=== PATIENT | female | born 1970 | race Caucasian/White ===

== ENCOUNTER 2019-04-27 17:03 | Inpatient (IN) | payer BC, OTHER ==
[2019-04-27 18:10] LABS: #Eosinphils 0.2 thou/uL (0.0-0.7); #Lymphocytes 2.9 thou/uL (1.20-3.40); #Monocytes 0.6 thou/uL (0.11-0.59); #Neutrophils 7.3 thou/uL (1.40-6.50); %Basophils 0.5 % (0.0-1.0); %Eosinophils 1.8 % (0.0-10.0); %Lymphocytes 26.5 % (21.0-51.0); %Monocytes 5.2 % (0.0-10.0); Mean Corpuscular HGB CONC 33.3 g/dL (32.0-36.0); Mean Corpuscular Hemoglobin 30.7 pg (27.0-31.0); Mean Corpuscular Volume 92.2 fL (78.0-98.0); Mean Platelet Volume 7.9 fL (7.4-10.4); Platelet Count 261 thou/uL (130-400); RBC Distribution Width 11.4 % (11.5-14.5); Red Blood Cell (RBC) Count 4.23 mill/uL (4.20-5.40); White Blood Cell (WBC) Count 11.1 thou/uL (4.8-10.8)
[2019-04-27 18:11] LABS: #Basophils 0.1 thou/uL (0.0-0.2)
[2019-04-27 18:42] LABS: ALT (SGPT) 19 U/L (8-55); AST (SGOT) 22 U/L (5-34); Alkaline Phosphatase 71 U/L (40-110); Anion Gap 10 mmol/L (10-20); BUN (Urea Nitrogen) 10 mg/dL (7.0-18.7); Bilirubin, Total 0.4 mg/dL (0.2-1.2); Calc. Creatinine Clearance 0 mL/min (70-130); Calcium 8.6 mg/dL (7.8-10.44); Carbon Dioxide 27 mmol/L (22-29); Chloride 104 mmol/L (98-107); Estimated GFR-MDRD 82; Globulin 2.7 g/dL (2.4-3.5); Glucose 96 mg/dL (70-105); Potassium 3.8 mmol/L (3.5-5.1); Protein, Total 6.7 g/dL (6.0-8.3); Sodium 137 mmol/L (136-145)
[2019-04-27] MEDS ORDERED: Morphine 4 MG/ML VIAL ONE (19:21)
[2019-04-27] MEDS ORDERED: Ondansetron PF 4 MG/2 ML Vial ONE (19:21)
--- NOTE | 2019-04-27 19:24 | RAD ---
Exam: Right knee 2 views: HISTORY: Injury from a slip and fall with pain and swelling FINDINGS: Very markedly comminuted markedly displaced fractures of the patella with up to 4.5 cm of displacemen t between the more superior and the more caudal fragments of the patella. The femur, tibia, and fibula appear intact. IMPRESSION: Very markedly comminuted markedly displaced fractures of the patella with severe separation of fragme nts.
[2019-04-27] MEDS ORDERED: Dextrose 5% in Water 1,000 ML IV PRN (20:58)
[2019-04-27] MEDS ORDERED: Ondansetron ODT 4 MG TAB PO PRN (20:58)
[2019-04-27] MEDS ORDERED: hydrALAZINE 20 MG/ML VIAL SLOW IVP PRN (20:58)
[2019-04-27] MEDS ORDERED: Ondansetron PF 4 MG/2 ML Vial IVP PRN (20:58)
[2019-04-27] MEDS ORDERED: Dextrose 50% Abboject 50 ML SYRINGE SLOW IVP PRN (20:58)
[2019-04-27] MEDS ORDERED: traMADol HCl 50 MG TAB PO PRN (21:04)
[2019-04-27] MEDS ORDERED: Cyclobenzaprine 10 MG TAB PO PRN (21:05)
[2019-04-27 21:43] LABS: Magnesium 1.8 mg/dL (1.6-2.6); Phosphorus 2.9 mg/dL (2.3-4.7)
--- NOTE | 2019-04-27 21:51 | RAD ---
Radiograph right hip 2 views: DATE: 04/27/2019 HISTORY: 48-year-old female with acute right hip pain due to fall FINDINGS: No fracture or dislocation. No DJD. IMPRESSION: Normal.
[2019-04-28] MEDS: Sodium Chloride 0.9% 1,000 ML IV SCH ×2 (00:10→10:06)
[2019-04-28] MEDS: Acetaminophen 1,000 MG in Premix Bag 1 BAG IVPB SCH ×4 (00:11→17:43)
[2019-04-28] MEDS: Famotidine 20 MG TAB PO SCH ×3 (00:11→20:57)
[2019-04-28] MEDS: Ibuprofen 800 MG TAB PO SCH ×4 (01:05→21:00)
--- NOTE | 2019-04-28 04:19 | HP ---
REQUESTING PHYSICIAN: Dr. Wright. CONSULTS: Orthopedic Surgery, Dr. Craig. 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 The patient states that the floor was slippery. The patient denies hitting her head or losing consciousness. The patient reported immediate right knee pain. The patient denies any other injuries. The patient denies feeling dizzy, short of breath, or having any chest pain prior to falling. The patient denies any recent illnesses , cough, cold, or fever. The patient was evaluated in the emergency room and was found to have a comminuted displaced patellar fracture. Trauma Service was asked to admit the patient. PAST MEDICAL HISTORY: Denies any past medical history. PAST SURGICAL HISTORY: Denies having any surgeries. ALLERGIES: PENICILLIN AND SULFA. MEDICATIONS: Progesterone and Estrogen. SOCIAL HISTORY: Denies tobacco use, reports occasional alcohol use, denies any illicit drug use, the patient is single and lives alone in her home. 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 PHYSICAL EXAMINATION: VITAL SIGNS: Blood pressure 145/79, pulse 82, respirations 16, SpO2 of 99% on room air. GENERAL: Middle-aged female, well appearing, no acute distress. HEENT: Atraumatic and normocephalic. NECK: No cervical spine tenderness, normal range of motion. Trachea midline. RESPIRATORY: Equal chest rise and fall, bilateral breath sounds clear, no wheezing, rales, or rhonchi. CARDIAC: Regular rate, regular rhythm, no murmurs. ABDOMEN: Soft, nontender, nondistended. EXTREMITIES: Mild right hip pain with palpation, right knee with ecchymosis and significant swelling, positive distal pulses, neurovascularly intact. Other extremities unremarkable. NEUROLOGIC: No focal deficits. GCS 15. DIAGNOSTICS: A 12-lead EKG, normal sinus rhythm. Right knee x-ray, impression, comminuted, markedly displaced fracture of the patella with severe separation of fragments. Right hip x-ray, no fracture or dislocation. LABORATORY DATA: WBC 11.1, RBC 4.23, hemoglobin 13.0, hematocrit 39.0, platelets 261. Sodium 137, potassium 3.8, chloride 104, carbon dioxide 27, BUN 10, creatinine 0.76, estimated GFR 82, glucose 96, calcium 8.6, phosphorus 2.9, magnesium 1.8, AST 22, ALT 19, alkaline phosphatase 71. ASSESSMENT: 1. Status post ground level fall. 2. Right comminuted displaced patellar fracture. 3. Acute traumatic pain. PLAN: Admit to surgical floor. N.p.o. after midnight with plans for Orthopedic Surgery to take to the OR for repair of her right patellar fracture. We will place the patient on pain regimen. Mechanical DVT prophylaxis. We will place a PT/OT consult to evaluate and treat postop. Most likely, the patient should be able to go home postop if she is able to ambulate safely and pain is well controlled. The patient should not need inpatient rehab. The plan was discussed with the patient who agrees. The plan will be discussed with the attending after this dictation. Job ID: [id number] MTDD
[2019-04-28 04:40] LABS: #Eosinphils 0.2 thou/uL (0.0-0.7); #Lymphocytes 3.9 thou/uL (1.20-3.40); #Monocytes 0.6 thou/uL (0.11-0.59); #Neutrophils 3.4 thou/uL (1.40-6.50); %Basophils 0.4 % (0.0-1.0); %Eosinophils 2.1 % (0.0-10.0); %Lymphocytes 47.5 % (21.0-51.0); %Monocytes 7.6 % (0.0-10.0); %Neutrophils 42.4 % (42.0-75.0); Hemoglobin 11.6 g/dL (12.0-16.0); Mean Corpuscular HGB CONC 34.7 g/dL (32.0-36.0); Mean Corpuscular Volume 92.2 fL (78.0-98.0); Platelet Count 225 thou/uL (130-400); RBC Distribution Width 11.4 % (11.5-14.5); Red Blood Cell (RBC) Count 3.61 mill/uL (4.20-5.40); White Blood Cell (WBC) Count 8.1 thou/uL (4.8-10.8)
[2019-04-28 05:00] LABS: Anion Gap 14 mmol/L (10-20); BUN (Urea Nitrogen) 8 mg/dL (7.0-18.7); Calc. Creatinine Clearance 0 mL/min (70-130); Carbon Dioxide 20 mmol/L (22-29); Chloride 108 mmol/L (98-107); Estimated GFR-MDRD 82; Glucose 84 mg/dL (70-105); Potassium 3.8 mmol/L (3.5-5.1); Sodium 138 mmol/L (136-145)
[2019-04-28] MEDS ORDERED: CEFAZOLIN 2 GM in Premix Bag 1 BAG IVPB SCH (06:15)
--- NOTE | 2019-04-28 06:33 | CON ---
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 She reports immediate pain. She denies any loss of consciousness. Upon arrival at [place], her sole complaint was that of right anterior knee pain. X-rays were obtained that showed a displaced and comminuted patellar fracture. As such, the patient admitted to the Trauma Service and Orthopedic consultation requested. PAST MEDICAL HISTORY: Healthy. PAST SURGICAL HISTORY: Negative. ALLERGIES: PENICILLIN AND SULFA, BOTH OF WHICH CAUSE HIVES. MEDICATIONS: Progesterone. FAMILY HISTORY: Noncontributory. SOCIAL HISTORY: Denies tobacco use. Reports rare alcohol consumption. Denies any drug use. REVIEW OF SYSTEMS: No recent fevers, chills, or sweats. Denies chest pain or shortness of breath. Denies numbness or tingling in the lower extremity. PHYSICAL EXAMINATION: VITAL SIGNS: She is found to have a temperature of 98.4, heart rate of 82, respiratory rate of 16, and blood pressure 145/78. GENERAL: She is found to be awake, alert, and oriented, in mild pain secondary to this knee. Friend is at bedside. HEENT: Atraumatic and normocephalic. HEART: Shows a regular rate and rhythm without murmur. LUNGS: Clear to auscultation bilaterally with good breath sounds. Chest wall is nontender. ABDOMEN: Soft and nontender. PELVIS: Stable to compression. EXTREMITIES: Remarkable for bilateral upper extremities are atraumatic. A left lower extremity also atraumatic. Right lower extremity remarkable for an atraumatic knee, ankle, and foot. She is wiggling her toes normally. Lower leg compartments are soft. There is no pain with passive stretch. The knee is remarkable for a positive hemarthrosis with a palpable gap at the patella with wide diastasis. LABORATORY DATA: White count of 11, hematocrit of 39 and 261,000 platelets. IMAGING STUDIES: X-rays, four view x-ray right knee remarkable for a patellar fracture with a large transverse fracture with severe diastasis in the superior pole showing fragmentation as well. ASSESSMENT: A 48-year-old lady status post ground level fall sustaining comminuted right patellar fracture. PLAN: At this time, the patient will be admitted to the surgical floor with plans to keep her n.p.o. after midnight and proceed to the operating room tomorrow for an open reduction and internal fixation. This evening, I discussed with the patient risks and benefits of the procedure. Risks include, but are not limited to bleeding, infection, nerve injury, DVT, PE, knee stiffness, knee pain, nonunion, malunion, loss of limb or life. The patient appears to understand and does wish to proceed. Informed consent will be obtained prior to surgery. Job ID: [id number]
[2019-04-28] MEDS: Senokot S 8.6-50 MG TAB PO SCH ×2 (07:24→20:58)
[2019-04-28] MEDS: Polyethylene Glycol 3350 17 GM Packet PO SCH (07:24)
[2019-04-28] MEDS: Morphine 4 MG/ML VIAL SLOW IVP PRN ×2 (10:06→15:49)
[2019-04-28] MEDS ORDERED: Bupivacaine HCl 0.5%/Epinephrine 1:200,000/PF 30 ml Vial ONE (10:14)
[2019-04-28] MEDS ORDERED: Ketorolac Tromethamine 30 MG/ML VIAL ONE (10:14)
[2019-04-28] MEDS ORDERED: Lidocaine 1% PF 5 ML VIAL ONE (10:14)
[2019-04-28] MEDS ORDERED: PROPOFOL 200 MG/20 ML VIAL ONE (10:14)
[2019-04-28] MEDS ORDERED: ePHEDrine/0.9% NaCl/PF SYRINGE 50 mg/10 ml ONE (10:14)
[2019-04-28] MEDS ORDERED: Ondansetron PF 4 MG/2 ML Vial ONE (10:14)
--- NOTE | 2019-04-28 10:36 | PRG ---
DATE OF SERVICE: 04/28/2019 SUBJECTIVE: Ms. Marquez is a 48-year-old woman fell down from ground level position yesterday sustaining a right comminuted displaced patellar fracture. This morning, she is awake and alert. Darnell Coma Scale is 15. She reports adequate pain control. OBJECTIVE: VITAL SIGNS: Include blood pressure 105/68, pulse 62, respiratory rate is 14, temperature is 98.1 degrees Fahrenheit, oxygen saturation 98% on room air. HEART: Reveals regular rate and rhythm. LUNGS: Clear to auscultation bilaterally. ABDOMEN: Soft, nontender, and nondistended. EXTREMITIES: Reveal 2+ radial and pedal pulses bilaterally. LABORATORY FINDINGS: Include a CBC with 8100 white blood cells, hemoglobin and hematocrit 11.6 and 33.3 respectively, platelet count is 225,000. Metabolic profile; sodium 138, potassium 3.8, chloride is 108, bicarb is 20, BUN 8, creatinine 0.76, glucose is 84. IMPRESSIONS: 1. Post injury day #1, status post ground level fall. 2. Comminuted right patellar fracture. PLAN: The patient is hemodynamically stable for operative repair of the fracture per Orthopedic Surgery. She will be seen by Physical Therapy for postoperative crutch training. Job ID: [id number]
[2019-04-28] MEDS ORDERED: Fentanyl 100 MCG/2 ML VIAL ONE (13:21)
[2019-04-28] MEDS ORDERED: Midazolam HCl 2 mg/2 ml Vial ONE (13:21)
[2019-04-28] MEDS ORDERED: Sodium Chloride 0.9% 0 ML ONE ×2 (13:28→13:29)
[2019-04-28] MEDS ORDERED: Promethazine HCl 25 MG/ML VIAL IM PRN (15:17)
[2019-04-28] MEDS ORDERED: Ondansetron HCl/PF 4 MG/2 ML Vial IVP PRN (15:17)
[2019-04-28] MEDS ORDERED: Promethazine HCl 25 MG/ML VIAL SLOW IVP PRN (15:17)
--- NOTE | 2019-04-28 16:42 | RAD ---
RIGHT KNEE THREE VIEWS: 04/28/19 HISTORY: ORIF right patella. FINDINGS/IMPRESSION: Two spot fluoroscopic intraoperative images of the right patella demonstrate postop changes of architect internship al fixation of the patellar fracture noted on the earlier exam of 6:55 p.m. from the previous day. POS: OFF
[2019-04-28] MEDS: traMADol HCl 50 MG TAB PO PRN (16:49)
[2019-04-28] MEDS: Acetaminophen 500 MG TAB PO SCH ×2 (18:36→23:45)
[2019-04-28] MEDS: CEFAZOLIN 2 GM in Premix Bag 1 BAG IVPB SCH (21:00)
--- NOTE | 2019-04-29 01:09 | PRG ---
DATE OF SERVICE: 04/28/2019 SUBJECTIVE: The patient was seen this evening during rounds, the patient is awake, alert, in no distress. The patient is postop repair of her displaced patella fracture earlier today. The patient reports that her pain is well controlled at this time. The patient is eating and drinking without any difficulties. The patient voices no complaints or concerns at this time. OBJECTIVE: The patient's vital signs are stable and the patient remains afebrile. The patient has good distal pulses in all extremities. PLAN: Continue supportive care and pain regimen. We will have Physical Therapy and Occupational Therapy work with the patient tomorrow morning. If the patient is able to ambulate safely and her pain is well controlled, she should be able to be discharged home tomorrow. The plan was discussed with the patient who agrees. Job ID: [id number]
[2019-04-29] MEDS: CEFAZOLIN 2 GM in Premix Bag 1 BAG IVPB SCH (05:34)
[2019-04-29 05:59] LABS: #Basophils 0.1 thou/uL (0.0-0.2); #Eosinphils 0.1 thou/uL (0.0-0.7); #Lymphocytes 2.8 thou/uL (1.20-3.40); #Monocytes 0.8 thou/uL (0.11-0.59); #Neutrophils 5.3 thou/uL (1.40-6.50); %Basophils 0.6 % (0.0-1.0); %Eosinophils 1.5 % (0.0-10.0); %Lymphocytes 30.7 % (21.0-51.0); %Monocytes 9.3 % (0.0-10.0); %Neutrophils 57.8 % (42.0-75.0); Hemoglobin 11.4 g/dL (12.0-16.0); Mean Corpuscular HGB CONC 34.1 g/dL (32.0-36.0); Mean Corpuscular Hemoglobin 31.6 pg (27.0-31.0); Mean Corpuscular Volume 92.7 fL (78.0-98.0); Mean Platelet Volume 8.1 fL (7.4-10.4); Platelet Count 207 thou/uL (130-400); RBC Distribution Width 11.4 % (11.5-14.5); White Blood Cell (WBC) Count 9.1 thou/uL (4.8-10.8)
[2019-04-29] MEDS: Ibuprofen 800 MG TAB PO SCH (06:18)
[2019-04-29] MEDS: Acetaminophen 500 MG TAB PO SCH ×2 (06:18→11:34)
[2019-04-29 06:25] LABS: Anion Gap 10 mmol/L (10-20); BUN (Urea Nitrogen) 8 mg/dL (7.0-18.7); Calc. Creatinine Clearance 0 mL/min (70-130); Calcium 8.2 mg/dL (7.8-10.44); Carbon Dioxide 25 mmol/L (22-29); Chloride 105 mmol/L (98-107); Estimated GFR-MDRD 83; Glucose 88 mg/dL (70-105); Magnesium 1.8 mg/dL (1.6-2.6); Phosphorus 3.7 mg/dL (2.3-4.7); Potassium 3.9 mmol/L (3.5-5.1); Sodium 136 mmol/L (136-145)
[2019-04-29 07:31] VITALS: TEMP 98.2
[2019-04-29] MEDS ORDERED: Magnesium 2 GM/50 ML 2 GM in Premix Bag 1 BAG IVPB SCH (07:45)
[2019-04-29] MEDS ORDERED: PHOS-NAK 1 PKT PACK PO SCH (07:45)
[2019-04-29] MEDS: Senokot S 8.6-50 MG TAB PO SCH (08:54)
[2019-04-29] MEDS: Famotidine 20 MG TAB PO SCH (08:55)
[2019-04-29] MEDS: Polyethylene Glycol 3350 17 GM Packet PO SCH (08:56)
[2019-04-29] MEDS ORDERED: Aspirin 81 mg Enteric Coated Tablet PO SCH (09:00)
[2019-04-29] MEDS ORDERED: Acetaminophen/Codeine 30-300mg Tablet PO PRN ×2 (09:13)
[2019-04-29] MEDS: traMADol HCl 50 MG TAB PO PRN (09:38)
[2019-04-29 11:54] VITALS: BP 95/58
--- NOTE | 2019-04-30 10:39 | OP ---
DATE OF PROCEDURE: 04/28/2019 PREOPERATIVE DIAGNOSIS: Comminuted patella fracture, right. POSTOPERATIVE DIAGNOSIS: Comminuted patella fracture, right. PROCEDURE PERFORMED: Open reduction and internal fixation of right patella. ANESTHESIA: General and block. PEARL FISHERMAN: David Golden PA-C TOURNIQUET TIME: 46 minutes at 300 mmHg. IMPLANTS: K-wire x2, as well as tension band construct. COMPLICATIONS: None. DRAINS: None. SPECIMEN: None. OUTCOME: Near-anatomic alignment. INDICATIONS FOR PROCEDURE: The patient is a 48-year-old lady who sustained a ground level fall, slipping while at work, landing directly on the right knee. She sustained a comminuted patellar fracture with a major transverse fracture line with diastasis and then some fragmentation of both the superior and inferior poles. After discussion with the patient including risks and benefits, we decided to proceed with open reduction and internal fixation. Informed consent has been obtained. I believe all questions answered. DESCRIPTION OF PROCEDURE: The patient was brought to the operating room and a time-out performed followed by induction of general anesthesia. Next, she was positioned supine on the OR table and a sterile prep and drape was performed of the right lower extremity. Next, a midline anterior knee incision was made after skin was sharply incised. Dissection was carried down to the underlying patella and its fracture. The peritenon of the patellar tendon was divided in line with skin incision, reflected medially and laterally. Next, the fracture hematoma was lavaged from the wound. The fracture was visualized. There was found to be a small fragment of bone medially that was not attached to any significant soft tissue and this was removed. Next, the fracture was reduced and held in place with a bone tenaculum. Once reduced and held in place, 2 cross K-wires were inserted obliquely across the major fracture line getting initial provisional fixation. Next, a tension band construct was passed under each of these K-wires in a circular type fashion and then tensioned getting excellent compression across the fracture line. At the completion of this, the distal ends of the K-wires were bent and then delivered up to the bone and then the proximal end of the K-wire was also partially bent and then cut proud of the bone. At the completion of this, AP and lateral C-arm images were obtained that showed near anatomic alignment. The wound again irrigated and then the medial and lateral retinacular tears were reapproximated with 0 Ethibond followed by 0 Vicryl, 2-0 Vicryl, and radha for the skin. A Xeroform gauze, Webril, and knee immobilizer were applied to the knee and then the patient was transferred to recovery room in stable condition. Tourniquet was let down at the completion of dressing. She tolerated the procedure well. Job ID: [id number]
--- NOTE | 2019-04-30 11:27 | DIS ---
DATE OF ADMISSION: 04/27/2019 DATE OF DISCHARGE: 04/29/2019 ADMISSION DIAGNOSES: Mechanical fall from standing and right comminuted displaced patellar fracture. DISCHARGE DIAGNOSES: Mechanical fall from standing and right comminuted displaced patellar fracture. CONSULTING PHYSICIAN: Dr. Craig of Orthopedic Surgery. PROCEDURES: The patient went to the OR on April 28, 2019, and had a fixation of her right patellar fracture with Dr. Craig. HOSPITAL COURSE: The patient is a 48-year-old female who presented to the emergency department after a slip and fall. She was found to have a right comminuted and displaced patellar fracture. She went to the OR the next day with Orthopedic Surgery for fixation of that fracture. Postoperatively, she worked with Physical and Occupational Therapy, was tolerating a regular diet and was ultimately discharged home. She was voiding without difficulty. DISCHARGE DISPOSITION: Home. DISCHARGE CONDITION: Satisfactory. PHYSICAL EXAMINATION: VITAL SIGNS: Temperature 98.2, pulse 88, respirations 15, oxygen saturation 96% on room air, blood pressure 98/60. GENERAL: A well-appearing, middle-aged female, sitting up in bed with no signs of acute distress. PULMONARY: Equal chest rise and fall. Clear breath sounds bilaterally. No signs of acute respiratory distress. CARDIAC: Regular rate and rhythm. GASTROINTESTINAL: Soft, nontender, nondistended. EXTREMITIES: 2+ pulses in all extremities. Gross motor and sensation are intact. Right lower extremity with knee immobilizer in place and appropriately fitting. NEUROLOGIC: GCS is 15. DISCHARGE INSTRUCTIONS: The patient was discharged home. She was weightbearing as tolerated and is to wear the knee immobilizer at all time. Activity as tolerated. Regular diet. Crutches and a walker. DISCHARGE MEDICATIONS: Include, 1. Tylenol No. 3. 2. Aspirin. 3. Flexeril. 4. Ibuprofen. 5. MiraLAX. 6. Tramadol. FOLLOWUP APPOINTMENTS: The patient is to follow up with Dr. Craig in 10 days. No need to follow up with Trauma Surgery. This is a summary of the patient's hospitalization. For full details, please see her medical record in its entirety. Job ID: [id number]
== END 2019-04-29 12:53 | disposition home or self-care (01) | DRG 517 ==
LOC: ERS 17:03 → SURG A 23:15 → 3SW 04-28 10:17 → SURG A 04-28 10:17
PROVIDERS: ADMIT Surgery; ATTEND Surgery
PROC: 0QSD04Z Reposition Right Patella with Internal Fixation Device, Open Approach (ICD-10-PCS; principal; 2019-04-28)
DX: S82.041A Displaced comminuted fracture of right patella, initial encounter for closed fracture (principal); W01.0XXA Fall on same level from slipping, tripping and stumbling without subsequent striking against object, initial encounter; Y92.219 Unspecified school as the place of occurrence of the external cause; Z88.0 Allergy status to penicillin; Z88.2 Allergy status to sulfonamides; Z79.890 Hormone replacement therapy
CPT/HCPCS: 36415; 76000; 80048; 80053; 83735; 84100; 85025; 86850; 86900; 86901; 93005; G0390; J0131; J0670; J0690; J1885; J2001; J2250; J2270; J2405; J2704; J3010; J3475; J3490; Q0162

== ENCOUNTER 2020-04-13 07:02 | Outpatient (CLI) | payer OTHER, BC ==
[2020-04-14 15:03] LABS: SARS-CoV-2 MS2 Positive; SARS-CoV-2 N Gene Negative; SARS-CoV-2 S Gene Negative; SARS-CoV-2 by NAA Not Detected (NotDetected); SARS-CoV-2 orf1ab Negative
== END 2020-04-13 07:03 | disposition home or self-care (01) ==
LOC: LABBT 07:02
PROVIDERS: ATTEND Orthopaedic Surgery
DX: T85.848A Pain due to other internal prosthetic devices, implants and grafts, initial encounter (principal); Z20.828 Contact with and (suspected) exposure to other viral communicable diseases
CPT/HCPCS: 87635; U0003

== ENCOUNTER 2020-04-18 10:12 | Day surgery (SDC) | payer OTHER ==
[2020-04-17 13:57] VITALS: BMI 25.8
[2020-04-18] MEDS ORDERED: Lidocaine 1% (PF) 30 ML VIAL ONE (10:49)
[2020-04-18] MEDS ORDERED: Dexamethasone 20 MG/5 ML VIAL ONE (11:05)
[2020-04-18] MEDS ORDERED: Ketorolac Tromethamine 30 MG/ML VIAL ONE (11:05)
[2020-04-18] MEDS ORDERED: PROPOFOL 200 MG/20 ML VIAL ONE (11:05)
[2020-04-18] MEDS ORDERED: ePHEDrine 50 MG/ML VIAL ONE (11:05)
[2020-04-18] MEDS ORDERED: Ondansetron PF 4 MG/2 ML Vial ONE (11:05)
[2020-04-18] MEDS ORDERED: Lidocaine 1% PF 5 ML VIAL ONE (11:05)
[2020-04-18] MEDS ORDERED: PHENYLEPHRINE-NS 100 MCG/ML 10 ML SYRINGE ONE (11:05)
[2020-04-18] MEDS ORDERED: Clindamycin/D5W 900 mg/50 ml Premix Bag ONE (11:12)
[2020-04-18] MEDS ORDERED: Levofloxacin 500 mg/D5W 100 ml Premix Bag ONE (11:12)
[2020-04-18] MEDS ORDERED: HYDROmorphone 0.5 MG/0.5 ML SYRINGE ONE (12:52)
[2020-04-18] MEDS ORDERED: Promethazine HCl 25 MG/ML VIAL ONE (12:53)
[2020-04-18] MEDS ORDERED: Bupivacaine PF 0.5% 30 ML VIAL ONE (13:32)
[2020-04-18] MEDS ORDERED: Fentanyl 100 MCG/2 ML VIAL ONE (14:22)
[2020-04-18] MEDS ORDERED: HYDROcodone/Acetaminophen 5/325 mg Tablet ONE (15:24)
--- NOTE | 2020-04-18 15:31 | RAD ---
1 FLUOROSCOPIC VIEW OF RIGHT KNEE: Date: 04/18/2020 INDICATION: Removal of hardware. COMPARISON: Prior exam dated 04/28/2019. FINDINGS: Since the comparison examination, there has been interval removal of the cerclage band of the patella . Total fluoroscopic time was 2.2 seconds. Total exposure was 1.3 milligray. IMPRESSION: Removal of hardware from the right knee. POS: BH
--- NOTE | 2020-04-19 14:19 | OP ---
DATE OF PROCEDURE: 04/18/2020 PREOPERATIVE DIAGNOSIS: Symptomatic retained hardware, right patella. POSTOPERATIVE DIAGNOSIS: Symptomatic retained hardware, right patella. PROCEDURE PERFORMED: Removal of K-wire tension band from right patella. ANESTHESIA: General. TOURNIQUET TIME: 36 minutes at 300 mmHg. IMPLANTS: None. DRAINS: None. SPECIMEN: Explanted hardware given to the patient. INDICATIONS FOR PROCEDURE: The patient is a 49-year-old lady, status post right patella fracture, treated with a tension band wire construct. The patient has gone on to heal her patella uneventfully, but does have symptoms from the retained hardware, as such, the patient now to undergo hardware removal. Informed consent has been obtained. I believe all questions have been answered. DESCRIPTION OF PROCEDURE: The patient was brought to the operating room and a time-out performed followed by induction of general anesthesia. Next, the patient was positioned supine on the OR table and a sterile prep and drape performed of the right lower extremity. The limb was exsanguinated with Esmarch bandage, tourniquet inflated to 300 mmHg. A midline anterior knee incision was made following the scar from a previous surgery. After skin was sharply incised, dissection was carried down sharply to the underlying quadriceps mechanism. The K-wires at this point could be palpated and two small incisions were made overlying the K-wires such that the K-wires could be visualized. These were then removed without difficulty with pliers. Next, the knot from the tension band could be palpated at the medial aspect of the patella. This exposed and then the 18-gauge wire removed in its entire length from this one site. At the completion of this, an AP x-ray was obtained of the knee to confirm all hardware had been removed. The wound was then irrigated with bulb syringe and closed in layers with 2-0 Vicryl subcutaneously and radha for the skin. Xeroform gauze and Sujit wrap dressing were then applied to the knee. The tourniquet was let down with total time of 36 minutes. The patient was transferred to recovery room in stable condition. There were no complications. The patient tolerated the procedure well. Job ID: [id number]
== END 2020-04-18 15:50 | disposition home or self-care (01) ==
LOC: SDC 10:12
PROVIDERS: ATTEND Orthopaedic Surgery
PROC: 0QP Lower Bones, Removal (ICD-10-PCS; principal; 2020-04-18)
DX: T84.84XA Pain due to internal orthopedic prosthetic devices, implants and grafts, initial encounter (principal); Z88.0 Allergy status to penicillin; Z88.2 Allergy status to sulfonamides
CPT/HCPCS: 76000; J1100; J1170; J1885; J1956; J2001; J2405; J2550; J2704; J3010; J3490; S0020

== ENCOUNTER 2022-10-08 19:00 | Outpatient (CLI) | payer BC | END 2022-10-08 19:01 | disposition home or self-care (01) | LOC: SLEEPLAB 19:00 | PROVIDERS: ATTEND Psychiatry & Neurology Neurology | DX: G47.33 Obstructive sleep apnea (adult) (pediatric) (principal); G47.419 Narcolepsy without cataplexy | CPT/HCPCS: 95810 ==